=== PATIENT | female | born 1960 | race Hispanic/Latino ===

== ENCOUNTER 2019-01-26 09:30 | Emergency (ER) | payer OTHER ==
[2019-01-26] MEDS ORDERED: KETOROLAC TROMETHAMINE 60 MG/2 ML VIAL ONE (09:39)
== END 2019-01-26 10:41 | disposition home or self-care (01) ==
LOC: EDH 09:30
DX: M17.12 Unilateral primary osteoarthritis, left knee (principal); R03.0 Elevated blood-pressure reading, without diagnosis of hypertension
CPT/HCPCS: 73562; 96372; 99284; J1885